=== PATIENT | male | born 1970 | race African-American/Black ===

== ENCOUNTER 2017-12-06 09:13 | Emergency (ER) | payer OTHER ==
[~2017-12-06] VITALS: Ht 170.2 cm; Wt 67.8 kg
[2017-12-06 12:37] VITALS: BP 120/79
== END 2017-12-06 12:41 | disposition home or self-care (01) ==
LOC: EME 09:13
DX: S61.210A Laceration without foreign body of right index finger without damage to nail, initial encounter (principal); S61.212A Laceration without foreign body of right middle finger without damage to nail, initial encounter; S00.431A Contusion of right ear, initial encounter; X99.1XXA Assault by knife, initial encounter; Y92.008 Other place in unspecified non-institutional (private) residence as the place of occurrence of the external cause; K21.9 Gastro-esophageal reflux disease without esophagitis; J30.9 Allergic rhinitis, unspecified; M19.90 Unspecified osteoarthritis, unspecified site; F17.200 Nicotine dependence, unspecified, uncomplicated; Z88.0 Allergy status to penicillin
CPT/HCPCS: 99281; 99283; S0020